=== PATIENT | female | born 1950 | race Caucasian/White ===

== ENCOUNTER 2023-06-17 07:55 | Emergency (ER) | payer MEDICARE ==
[2023-06-17] MEDS ORDERED: Lidocaine 4% Patch ONE (08:35)
[2023-06-17] MEDS ORDERED: Acetaminophen 325 MG TAB ONE (08:35)
[2023-06-17] MEDS ORDERED: Dexamethasone 10 MG/ML VIAL ONE (08:35)
[2023-06-17 08:46] LABS: #Basophils 0.1 thou/uL (0.0-0.2); #Eosinphils 0.7 thou/uL (0.0-0.7); #Lymphocytes 1.5 thou/uL (1.20-3.40); #Monocytes 0.5 thou/uL (0.11-0.59); #Neutrophils 6.8 thou/uL (1.40-6.50); %Basophils 1.1 % (0.0-1.0); %Eosinophils 6.8 % (0.0-10.0); %Lymphocytes 15.3 % (21.0-51.0); %Monocytes 5.5 % (0.0-10.0); %Neutrophils 71.3 % (42.0-75.0); Hematocrit 46.5 % (36.0-47.0); Hemoglobin 14.5 g/dL (12.0-16.0); Mean Corpuscular HGB CONC 31.2 g/dL (32.0-36.0); Mean Corpuscular Hemoglobin 26.9 pg (27.0-31.0); Mean Corpuscular Volume 86.2 fl (78.0-98.0); Mean Platelet Volume 7.5 fL (7.4-10.4); Platelet Count 384 10x3/uL (130-400); RBC Distribution Width 13.3 % (11.5-14.5); White Blood Cell (WBC) Count 9.6 10x3/uL (4.8-10.8)
[2023-06-17 09:05] LABS: ALT (SGPT) 14 U/L (8-55); AST (SGOT) 21 U/L (5-34); Albumin 3.9 g/dL (3.4-4.8); Alkaline Phosphatase 100 U/L (40-110); Anion Gap 17 mmol/L (10-20); BUN (Urea Nitrogen) 10 mg/dL (9.8-20.1); Bilirubin, Total 0.4 mg/dL (0.2-1.2); Calc. Creatinine Clearance 0 mL/min (70-130); Calcium 9.6 mg/dL (7.8-10.44); Carbon Dioxide 21 mmol/L (23-31); Chloride 102 mmol/L (98-107); Estimated GFR 92; Globulin 4.1 g/dL (2.4-3.5); Glucose 90 mg/dL (83-110); Magnesium 2.2 mg/dL (1.6-2.6); Potassium 4.3 mmol/L (3.5-5.1); Sodium 136 mmol/L (136-145)
[2023-06-17 09:09] LABS: Bilirubin Negative (Negative); Blood, Urine Trace (Negative); Clarity Clear (Clear); Glucose, Urine (Dipstick) Negative (Negative); Ketone, Urine 15 mg/dL (Negative); Leukocyte Negative (Negative); Nitrite Negative (Negative); Protein, Urine (Dipstick) Negative (Neg-Trace); Urobilinogen 0.2 mg/dL (Less than 2)
[2023-06-17 09:22] LABS: Bacteria/HPF Rare-Few HPF (None Seen); CAUTI Indications for Culture Dysuria,urgency,freq; RBC/HPF 0-3 HPF (0-3); Squamous Epithelial 0-3 HPF (0-3); WBC/HPF 0-3 HPF (0-3)
[2023-06-17 09:25] LABS: Urine Culture Reflex No No
[2023-06-17] MEDS ORDERED: Morphine 4 MG/ML VIAL ONE (10:00)
== END 2023-06-17 13:00 | disposition short-term general hospital (02) ==
LOC: MADERS 07:55
DX: S32.10XA Unspecified fracture of sacrum, initial encounter for closed fracture (principal); R79.82 Elevated C-reactive protein (CRP); R33.9 Retention of urine, unspecified; X50.1XXA Overexertion from prolonged static or awkward postures, initial encounter
CPT/HCPCS: 51701; 72131; 80053; 81001; 83735; 85025; 86140; 94760; 96372; 96374; J1100; J2270

== ENCOUNTER 2023-06-24 13:39 | Emergency (ER) | payer MEDICARE ==
[2023-06-24] MEDS ORDERED: Gabapentin 100 MG CAP ONE (14:56)
== END 2023-06-24 19:43 ==
LOC: MADERS 13:39
DX: S32.10XA Unspecified fracture of sacrum, initial encounter for closed fracture (principal); J45.909 Unspecified asthma, uncomplicated; X58.XXXA Exposure to other specified factors, initial encounter; Z79.899 Other long term (current) drug therapy
CPT/HCPCS: 99284